=== PATIENT | male | born 1955 | race Caucasian/White ===

== ENCOUNTER 2016-01-23 15:45 | Outpatient (RCR) | payer OTHER ==
[~2016-01-23 15:45] MED LIST: ALEVE 220MG220 MG PO; ARTHRITIS MED PO; ASPIRIN 32325 MG/TAB PO; FISH OIL 1000MG1 CAP PO; GLUCOPHAGE500 MG/TAB PO; LIPITOR 10MG10 MG PO; MINIPRESS 1M1 MG/CAP PO; NORCO 325 MG-51 TAB PO; PRINIVIL10 MG PO
== END 2016-04-08 | disposition still patient (30) ==
LOC: MKS.ESL.PT
DX: M51.34 Other intervertebral disc degeneration, thoracic region (principal)

== ENCOUNTER 2020-10-15 11:40 | Observation (INO) | payer BC ==
[~2020-10-15] VITALS: Ht 170.3 cm; Wt 92.3 kg
[2020-10-15] MEDS ORDERED: ZYLOPRIM 100MG100 MG PO (12:02)
[2020-10-15] MEDS ORDERED: MOBIC15 MG PO (12:03)
[2020-10-15 12:04] LABS: BASO # 0.1 (0.0-0.2); EOS # 0.3 (0.0-0.7); EOS % 3.8 % (0-4.0); GRAN # 5.1 (1.4-6.5); GRAN % 60.5 % (42.2-75.2); HEMATOCRIT 41.7 % (42.0-52.0); HEMOGLOBIN 14.1 g/dl (13.5-18.0); LYMPH # 2.1 (1.2-3.4); MEAN CELL VOLUME 95 fl (80.0-100.0); MEAN CORPUSCULAR HEMOGLOBIN 32 pg (27.0-31.0); MEAN CORPUSCULAR HGB CONC 34 g/dl (33.0-37.0); MEAN PLATELET VOLUME 11.5 fl (7.4-10.4); MONO # 0.8 (0.1-0.6); MONO % 9.2 % (1.7-9.3); PLATELET COUNT 201 K/mm3 (130-400); RED BLOOD COUNT 4.41 M/mm3 (4.20-5.60); REDCELL DISTRIBUTION WIDTH-CV 12.8 % (11.5-14.5)
[2020-10-15] MEDS ORDERED: PEPCID 20MG TAB20 MG PO (12:04)
[2020-10-15] MEDS ORDERED: WELLBUTRIN SR150 M1 PO (12:04)
[2020-10-15 12:15] LABS: ALANINE AMINOTRANSFERASE 15 U/L (4-49); ALBUMIN 4.5 gm/dL (3.5-5.0); ALKALINE PHOSPHATASE 74 U/L (50-136); ANION GAP 9 mmol/L (7-16); AST,SGOT 30 U/L (15-37); BILIRUBIN,TOTAL 0.2 mg/dL (0.0-1.0); BLOOD UREA NITROGEN 18 mg/dL (9-20); CALCIUM 9.5 mg/dL (8.4-10.2); CARBON DIOXIDE 26 mmol/L (22-30); CHLORIDE 104 mmol/L (98-107); CREATININE, serum 1.03 (0.66-1.25); GLUCOSE 84 mg/dL (74-106); POTASSIUM 4.7 mmol/L (3.4-5.0); SODIUM 139 mmol/L (137-145); TOTAL PROTEIN 7.7 gm/dL (6.4-8.2)
[2020-10-15 12:27] LABS: TROPONIN-I < 0.012 ng/mL (0.000-0.035)
--- NOTE | 2020-10-15 14:33 | NUR ---
PT IS IN THE ROOM WITH AT BEDSIDE WHO IS INTERPRETING FOR THE PATIENT. THE PATIENT SAYS THAT HE LEARNS BEST VISUALLY, SO VIDEO OR WRITTEN MATERIAL WOULD BE BEST. THE PATIENT DOES STATE THAT THE PAIN IS LESS IN HIS CHEST, AND MORE IN THE LEFT SHOULDER, MOST TENDER WHEN PALPATED ON THE POSTERIOR NEAR THE TOP OF THE SCAPULA. NO OTHER CONCERNS AT THIS TIME. WILL CONTINUE TO MONITOR.
[2020-10-15 15:35] VITALS: BP 119/69; PULSE 70; TEMP 98.6
--- NOTE | 2020-10-15 18:21 | NUR ---
pt denies much pain after getting morphine. The patient is kosovan speaking only, and says if he needs anything for pain, he was say "Pain" and a number. No other concerns today. Will report to shift superintendent caustic cresylate RN.
[2020-10-15 20:30] VITALS: BP 127/67; PULSE 76; TEMP 98.1
--- NOTE | 2020-10-15 21:15 | NUR ---
call placed to [facility] re: shoulder pain- sharp and tight area in shoulder blade- NON: Orthopedic consult and Flexeril. Updated patient.
[2020-10-16] VITALS (9 sets, daily range): BP systolic 108–126; BP diastolic 64–77; PULSE 56–96; TEMP 97–98.1
[2020-10-16 07:09] LABS: BASO # 0.1 (0.0-0.2); EOS # 0.4 (0.0-0.7); EOS % 5.7 % (0-4.0); GRAN # 3.2 (1.4-6.5); GRAN % 52.3 % (42.2-75.2); HEMATOCRIT 42.3 % (42.0-52.0); HEMOGLOBIN 13.7 g/dl (13.5-18.0); LYMPH # 1.8 (1.2-3.4); MEAN CELL VOLUME 97 fl (80.0-100.0); MEAN CORPUSCULAR HEMOGLOBIN 32 pg (27.0-31.0); MEAN CORPUSCULAR HGB CONC 32 g/dl (33.0-37.0); MEAN PLATELET VOLUME 11.7 fl (7.4-10.4); MONO # 0.6 (0.1-0.6); MONO % 10.5 % (1.7-9.3); PLATELET COUNT 182 K/mm3 (130-400); RED BLOOD COUNT 4.35 M/mm3 (4.20-5.60); REDCELL DISTRIBUTION WIDTH-CV 12.9 % (11.5-14.5)
[2020-10-16 07:17] LABS: CALCIUM 9.2 mg/dL (8.4-10.2); CHOLESTEROL RISK RATIO 6.4; CREATININE, serum 1.03 (0.66-1.25); POTASSIUM 4.5 mmol/L (3.4-5.0)
[2020-10-16] MEDS ORDERED: ASPIRIN 81M81 MG/TA2 PO (09:41)
[2020-10-16] MEDS ORDERED: BLUE-EMU LIDOC1 EACH TP (09:43)
--- NOTE | 2020-10-16 12:32 | NUR ---
Initial visit attempt; Patient indisposed, Equipment Operator Wage Hand spoke with his , letting her know of the availability of spiritual care at our hospital.
[2020-10-16] MEDS ORDERED: LIPITOR20 MG PO (13:36)
[2020-10-16] MEDS ORDERED: GLUCOPHAGE1000 MG PO (14:15)
--- NOTE | 2020-10-16 15:10 | NUR ---
SW met with patient and patient's for intake assessment. Patient lives in [place] with his (Estefani # [phone]) and their youngest son. Patient is able to complete all ADL's and is independent on ADL's. Patient's PCP is Dr. Wolfe. Patient receives his medications through [facility] and reports no problems with affording medications. Patient does not have a DPOA-HC established and does not wish to establish one at this time. Both patient and verbalized understanding that the DPOA-HC falls on the next of kin. Patient plans to discharge back to home with . No additional needs at this time. * Discharge plan: Home with *
== END 2020-10-16 16:45 | disposition home or self-care (01) ==
LOC: COL.ER 11:40 → MEDICAL 12:36
PROVIDERS: Emergency Medicine; Physician Assistant; ADMIT Internal Medicine
DX: R07.9 Chest pain, unspecified (principal); I10 Essential (primary) hypertension; E78.5 Hyperlipidemia, unspecified; K21.9 Gastro-esophageal reflux disease without esophagitis; M19.90 Unspecified osteoarthritis, unspecified site; M10.9 Gout, unspecified; E11.9 Type 2 diabetes mellitus without complications; M25.512 Pain in left shoulder; F17.210 Nicotine dependence, cigarettes, uncomplicated; F32.9 Major depressive disorder, single episode, unspecified; Z79.899 Other long term (current) drug therapy; Z79.84 Long term (current) use of oral hypoglycemic drugs; Z79.82 Long term (current) use of aspirin
CPT/HCPCS: A9500; G0378; J2270; J2785

== ENCOUNTER → 2020-11-04 | Outpatient (CLI) | payer BC ==
[~2020-11-04] MED LIST changes: +ASPIRIN 81M81 MG/TA2 PO; +BLUE-EMU LIDOC1 EACH TP; +GLUCOPHAGE1000 MG PO; +LIPITOR20 MG PO; +MOBIC15 MG PO; +PEPCID 20MG TAB20 MG PO; +PRINIVIL5 MG PO; +WELLBUTRIN SR150 M1 PO; +ZYLOPRIM 100MG100 MG PO
== END ==
LOC: COL.LAB 11:26
DX: E11.8 Type 2 diabetes mellitus with unspecified complications (principal)

== ENCOUNTER 2020-11-07 05:42 | Day surgery (SDC) | payer BC ==
[~2020-11-07] VITALS: Ht 170.2 cm; Wt 96.1 kg
[2020-11-07] VITALS (8 sets, daily range): BP systolic 131–141; BP diastolic 73–90; PULSE 79–89; TEMP 98.2–98.6
[~2020-11-07 05:42] MED LIST changes: -PRINIVIL5 MG PO
[2020-11-07] MEDS ORDERED: PRINIVIL5 MG PO (06:49)
--- NOTE | 2020-11-07 11:30 | NUR ---
Patient returns to room 7 per cart from PACU accompanied by Lyn DELCID and is awake and alert. Sats 95% on 2L per nasal cannula. Head of cart elevated. Ice on the left shoulder. Left arm in sling. Denies pain and states left arm numb. Dressing clean and dry on the left shoulder. IV fluids infusing and site is free of redness. Siderails up x2 and call light in reach.
--- NOTE | 2020-11-07 11:45 | NUR ---
Drinking orange juice. Continues to deny pain.
--- NOTE | 2020-11-07 12:00 | NUR ---
Resting with eyes closed and spouse at side. Tolerated juice.
--- NOTE | 2020-11-07 12:15 | NUR ---
Taking ice chips and juice. Denies pain when asked.
--- NOTE | 2020-11-07 12:30 | NUR ---
Resting with eyes closed and spouse at side. IV fluids infusing. Dressing on the left shoulder dry with ice on the left shoulder.
--- NOTE | 2020-11-07 13:00 | NUR ---
Tolerated apple sauce and juice. Continues to deny left shoulder pain or nausea.
--- NOTE | 2020-11-07 13:33 | NUR ---
Assisted up to the bathroom and gait steady. Voids and returns to room. IV was converted to INT. Denies nausea.
--- NOTE | 2020-11-07 13:55 | NUR ---
Dismissal instructions given and INT discontinued. Site is free of redness or swelling. Instructed on starting physical therapy and taking pain medications, and how to manage sling. Patient dismissed to home driven by spouse.
== END 2020-11-07 13:55 | disposition home or self-care (01) ==
LOC: SDCO 05:42
DX: M75.112 Incomplete rotator cuff tear or rupture of left shoulder, not specified as traumatic (principal); M65.812 Other synovitis and tenosynovitis, left shoulder; M10.9 Gout, unspecified; E78.00 Pure hypercholesterolemia, unspecified; E11.9 Type 2 diabetes mellitus without complications; E78.5 Hyperlipidemia, unspecified; M19.90 Unspecified osteoarthritis, unspecified site; I10 Essential (primary) hypertension; G47.33 Obstructive sleep apnea (adult) (pediatric); F17.210 Nicotine dependence, cigarettes, uncomplicated; K21.9 Gastro-esophageal reflux disease without esophagitis; Z79.82 Long term (current) use of aspirin; Z79.899 Other long term (current) drug therapy; Z79.84 Long term (current) use of oral hypoglycemic drugs; Z99.89 Dependence on other enabling machines and devices; Z83.3 Family history of diabetes mellitus
CPT/HCPCS: A4619; C1713; J0690; J1100; J1170; J2250; J2405; J2704; J3010; J7120

== ENCOUNTER → 2023-07-15 | Outpatient (CLI) | payer MEDICARE ==
[~2023-07-15] MED LIST changes: +Iohexol 300 - 100 ML VIAL IV ONE; +NS 100 ML IV SCH; +PRINIVIL5 MG PO
== END ==
LOC: COL.RAD 10:25
DX: K40.20 Bilateral inguinal hernia, without obstruction or gangrene, not specified as recurrent (principal); K76.0 Fatty (change of) liver, not elsewhere classified; M71.88 Other specified bursopathies, other site
CPT/HCPCS: Q9967